=== PATIENT | female | born 1990 | race African-American/Black ===

== ENCOUNTER 2019-09-15 00:29 | Emergency (ER) | payer MEDICAID ==
[~2019-09-15] VITALS: Ht 152.4 cm; Wt 59.0 kg
[2019-09-15 00:35] VITALS: BP 124/73
== END 2019-09-15 02:04 | disposition left against medical advice (07) ==
LOC: ER 00:29
DX: L02.01 Cutaneous abscess of face (principal); Z53.21 Procedure and treatment not carried out due to patient leaving prior to being seen by health care provider

== ENCOUNTER 2019-09-18 23:15 | Emergency (ER) | payer MEDICAID ==
[~2019-09-18] VITALS: Ht 152.4 cm; Wt 63.0 kg
[2019-09-18 23:30] VITALS: BP 108/66
== END 2019-09-19 03:50 | disposition home or self-care (01) ==
LOC: ER 23:15
DX: L72.8 Other follicular cysts of the skin and subcutaneous tissue (principal)
CPT/HCPCS: 99281